=== PATIENT | male | born 1965 | race Caucasian/White ===

== ENCOUNTER 2017-07-16 11:43 | Emergency (ER) | payer SELFPAY ==
--- NOTE | 2017-07-16 13:09 | CR ---
Comminuted fracture through the olecranon. Remainder appears intact. Joint effusion.
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
== END 2017-07-16 14:23 | disposition home or self-care (01) ==
LOC: JP.ED 11:43
DX: S52.024A Nondisplaced fracture of olecranon process without intraarticular extension of right ulna, initial encounter for closed fracture (principal); I10 Essential (primary) hypertension; W51.XXXA Accidental striking against or bumped into by another person, initial encounter
CPT/HCPCS: 73080-26-RT; 73080-RT; 99284